=== PATIENT | female | born 1955 ===

== ENCOUNTER 2016-12-09 12:25 | Emergency (ER) | payer MEDICARE, MEDICAID ==
[2016-12-09 12:38] VITALS: BMI 46.3
[2016-12-09 12:40] VITALS: BP 108/74; PULSE 78; RESP 18; TEMP 98.7; O2SAT 99
--- NOTE | 2016-12-09 13:05 | C.PDOC ---
History Of Present Illness The patient, a 61 y/o female, presents to the ED requesting medication refill. Patient states she recently relocated from [place]. Patient is requesting refill for her hypertension and hypercholesterolemia medication. She states she took her last dose around 1 week ago. Patient currently denies any active complaints. Ambulate to ED for evaluation, not in any apparent distress. Time Seen by Provider: 12/09/16 12:46 Chief Complaint (Nursing): Med Refill History Per: Patient History/Exam Limitations: no limitations Onset/Duration Of Symptoms: Days Current Symptoms Are (Timing): Still Present Additional History Per: Patient Past Medical History Reviewed: Historical Data, Nursing Documentation, Vital Signs Vital Signs: Last Vital Signs Temp 98.7 F 12/09/16 12:38 Pulse 78 12/09/16 12:38 Resp 18 12/09/16 12:38 BP 108/74 12/09/16 12:38 Pulse Ox 99 12/09/16 16:53 - Medical History PMH: HTN, Hypercholesterolemia Surgical History: No Surg Hx Family History: States: Unknown Family Hx - Social History Hx Alcohol Use: No Hx Substance Use: No - Immunization History Hx Tetanus Toxoid Vaccination: No Hx Influenza Vaccination: Yes Hx Pneumococcal Vaccination: No Review Of Systems Except As Marked, All Systems Reviewed And Found Negative. Constitutional: Positive for: Other (+request for medicine refill ) Physical Exam - Physical Exam Appears: Well, Non-toxic, No Acute Distress Skin: Normal Color, Warm, No Rash Eye(s): bilateral: PERRL Oral Mucosa: Moist Throat: Normal Neck: Supple Cardiovascular: Rhythm Regular Respiratory: No Stridor, No Wheezing Gastrointestinal/Abdominal: Soft, No Tenderness Back: No CVA Tenderness Extremity: No Pedal Edema Neurological/Psych: Oriented x3, Normal Speech ED Course And Treatment O2 Sat by Pulse Oximetry: 99 (on RA) Pulse Ox Interpretation: Normal Progress Note: On re-eavl, pt is afebrile, hemodynamicaly stable. NOn-toxic. Ambulatory in ED with stable gait. Asymptomatic. Pt advsied and ref. to F/u with PMD, Clinic in 2-3 days for re-eavluation and medication refill asneed. Return to Ed if any worsening or new changes. Disposition Counseled Patient/Family Regarding: Diagnosis, Need For Followup, Rx Given - Disposition Referrals: [facility] [Outside] [facility] [Outside] Disposition: HOME/ ROUTINE Disposition Time: 13:05 Condition: STABLE Additional Instructions: Follow up with PMD in 2-3 days for re-evaluation and medical refill. 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 - Scribe Statement The provider has reviewed the documentation as recorded by the Scribe (Mecca Subramanian) All medical record entries made by the Scribe were at my direction and personally dictated by me. I have reviewed the chart and agree that the record accurately reflects my personal performance of the history, physical exam, medical decision making, and the department course for this patient. I have also personally directed, reviewed, and agree with the discharge instructions and disposition.
== END 2016-12-09 13:13 | disposition home or self-care (01) ==
LOC: C.ER 12:25 → MERGE 12:25 → C.ER 13:13
DX: I10 Essential (primary) hypertension (principal); E78.5 Hyperlipidemia, unspecified; Z76.0 Encounter for issue of repeat prescription